=== PATIENT | male | born 1950 | race Caucasian/White ===

== ENCOUNTER → 2018-01-11 | Outpatient (CLI) | payer BC ==
--- NOTE | 2018-01-11 11:14 | RAD ---
MR#: [id number] Date of Study: 01/11/2018 Ordering Physician: YAS BURT, Referring Physician: YAS BURT, Tech: Maria D Wong RDMS, RVT, RTR APPROVED REPORT Patient Location : OUT-PATIENT Indications Saunders scale images of the SFJ and GSV and LSV bilaterally do not reveal any obvious thrombus. Color an d doppler imaging does not reveal any evidence of reflux in the bilateral greater and lesser saphenou s veins. Critical Notification Critical Value: No <Conclusion> Negative for GSV/LSV reflux. Signed by : Peewee Cespedes, Electronically Approved : 01/11/2018 11:13:20
--- NOTE | 2018-01-11 12:02 | CARD ---
MR#: [id number] Date of Study: 01/11/2018 Ordering Physician: YAS BURT, Referring Physician: YAS BURT, Tech: Kayla Stephenson APPROVED REPORT EXAM: Two-dimensional and M-mode echocardiogram with Doppler and color Doppler. Other Information Quality : AverageHR: 54bpm Rhythm : NSRTechnically limited study due to body habitus. INDICATION Hypertension/HCVD 2D DIMENSIONS RVDd4.0 (2.9-3.5cm)Left Atrium(2D)3.0 (1.6-4.0cm) IVSd0.9 (0.7-1.1cm)Aortic Root(2D)3.6 (2.0-3.7cm) LVDd5.0 (3.9-5.9cm)LVOT Diameter2.1 (1.8-2.4cm) PWd1.5 (0.7-1.1cm)LVDs3.3 (2.5-4.0cm) FS (%) 33.8 %SV74.8 ml LVEF(%)62.4 (>50%) Aortic Valve AoV Peak Yevgeniy.243.8cm/sAoV VTI59.2cm AO Peak GR.23.8mmHgLVOT Peak Yevgeniy.200.0cm/s LVOT VTI 42.60cmAO Mean GR.14mmHg NARGIS (VMAX)2.90ih0GJA (VTI)2.45cm2 AI P 1/2 Wsjj384dy Mitral Valve MV E Kooszfbm41.1cm/sMV DECEL [id number] MV A Uczcxwek30.8cm/sE/A Ratio1.4 Pulmonary Valve PV Peak Egwgsjfv726.3cm/sPV Peak Grad.5mmHg Tricuspid Valve TR P. Hebggbsz474rw/sRAP FRHREPSV4zwNx TR Peak Gr.77fvAfDLLB11qdJu LEFT VENTRICLE The left ventricle is normal size. There is normal left ventricular wall thickness. The left ventricu lar systolic function is normal and the ejection fraction is within normal range. The Ejection Fracti on is 55-60%. There is normal LV segmental wall motion. Tissue Doppler imaging reveals moderate left ventricular diastolic dysfunction. RIGHT VENTRICLE The right ventricle is normal size. There is normal right ventricular wall thickness. The right ventr icular systolic function is normal. ATRIA The left atrium size is normal. The right atrium size is normal. The interatrial septum is intact wit h no evidence for an atrial septal defect or patent foramen ovale as noted on 2-D or Doppler imaging. 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 Doppler and Co emerson Flow revealed mild to moderate aortic regurgitation. There is no significant aortic valvular sten osis. MITRAL VALVE The mitral valve is thickened but opens well. There is no mitral valve stenosis. Doppler and Color-fl ow revealed trace mitral regurgitation. TRICUSPID VALVE The tricuspid valve is normal in structure and function. Doppler and Color Flow revealed trace tricus pid regurgitation. There is no tricuspid valve stenosis. PULMONIC VALVE Doppler and Color Flow revealed trace pulmonic valvular regurgitation. There is no pulmonic valvular stenosis. GREAT VESSELS The aortic root is normal in size. The IVC is normal in size and collapses >50% with inspiration. PERICARDIAL EFFUSION There is no evidence of significant pericardial effusion. Critical Notification Critical Value: No <Conclusion> The left ventricular systolic function is normal and the ejection fraction is within normal range. Th e Ejection Fraction is 55-60%. There is normal LV segmental wall motion. 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 Doppler and Color Flow revealed mild to moderate aortic regurgitation. Signed by : Peewee Cespedes, Electronically Approved : 01/11/2018 12:01:22
== END | disposition home or self-care (01) ==
LOC: US 09:20
PROVIDERS: ATTEND Internal Medicine Cardiovascular Disease
DX: I35.1 Nonrheumatic aortic (valve) insufficiency (principal); R60.0 Localized edema; I10 Essential (primary) hypertension
CPT/HCPCS: 93306; 93970